=== PATIENT | female | born 1950 | race Hispanic/Latino ===

== ENCOUNTER → 2018-05-26 | Outpatient (CLI) | payer BC, OTHER | END | disposition home or self-care (01) | LOC: OIH 09:24 | PROVIDERS: ATTEND Orthopaedic Surgery | DX: M75.101 Unspecified rotator cuff tear or rupture of right shoulder, not specified as traumatic (principal); M65.811 Other synovitis and tenosynovitis, right shoulder; M19.011 Primary osteoarthritis, right shoulder | CPT/HCPCS: 73221 ==

== ENCOUNTER 2018-08-19 08:29 | Day surgery (SDC) | payer OTHER ==
[~2018-08-19] VITALS: Ht 165.1 cm; Wt 60.8 kg
[~2018-08-19 08:29] MED LIST: ACYC400T PO; MONT10TA21 PO; ROSU5TAB PO; SODIUM CHLORIDE 0.9% 1000ML 1,000 ML IV ONE
[2018-08-19 09:32] VITALS: BP 154/71
[2018-08-19] MEDS ORDERED: PROPOFOL 10 MG/ML 20ML VIAL IV ONE (10:21)
[2018-08-19 10:41] VITALS: BP 125/62
[2018-08-19 10:46] VITALS: BP 119/69
[2018-08-19 10:56] VITALS: BP 134/71
[2018-08-19 11:01] VITALS: BP 140/76
[2018-08-19 11:03] VITALS: BP 137/64
== END 2018-08-19 11:06 | disposition home or self-care (01) ==
LOC: DAH 08:29 → ENDO 08:29
PROVIDERS: ATTEND Internal Medicine
DX: Z12.11 Encounter for screening for malignant neoplasm of colon (principal); D12.2 Benign neoplasm of ascending colon; D12.3 Benign neoplasm of transverse colon; D12.4 Benign neoplasm of descending colon; K64.0 First degree hemorrhoids; K57.30 Diverticulosis of large intestine without perforation or abscess without bleeding; E78.5 Hyperlipidemia, unspecified; Z79.899 Other long term (current) drug therapy; Z86.010 Personal history of colon polyps
CPT/HCPCS: 45380; 45385; 88305; A4606; J2704; J7030